=== PATIENT | female | born 1955 | race Caucasian/White ===

== ENCOUNTER 2019-02-22 22:03 | Inpatient (IN) | payer OTHER ==
[~2019-02-22] VITALS: Ht 177.8 cm; Wt 106.3 kg
[2019-02-22 22:53] LABS: Source, Urine Clean Catch
[2019-02-22 22:55] LABS: Bilirubin, Urine Neg (Neg); Blood, Urine 1+ (Neg); Glucose Qualitative, Urine Neg (Neg); Ketones, Urine Neg (Neg); Leukocyte Esterase, Urine Neg (Neg); Nitrite, Urine Neg (Neg); Protein, Urine 2+ (Neg); Urobilinogen, Urine NORM (Normal); pH, Urine 6.5 (5.0-8.0)
[2019-02-22 23:00] LABS: Appearance, Urine Clear (Clear); Color, Urine Yellow (P-Yellow)
[2019-02-22 23:01] LABS: Bacteria Mod /hpf; Squamous Epithelial Cells Not Seen /hpf (Few)
[2019-02-22 23:17] LABS: BASOPHILS ABSOLUTE AUTO 0.05 K/mm3 (0.00-0.23); BASOPHILS PERCENT AUTO 0 % (0-2); EOSINOPHILS ABSOLUTE AUTO 0.01 K/mm3 (0.00-0.68); EOSINOPHILS PERCENT AUTO 0 % (0-6); Hematocrit 47.9 % (33.0-51.0); Hemoglobin 16.3 g/dL (11.5-16.0); IMMATURE GRAN ABSOLUTE AUTO 0.05 K/mm3 (0.00-0.10); IMMATURE GRAN PERCENT AUTO 0 % (0-1); LYMPHOCYTES ABSOLUTE AUTO 1.82 K/mm3 (0.84-5.20); LYMPHOCYTES PERCENT AUTO 13 % (21-46); MONOCYTES ABSOLUTE AUTO 1.43 K/mm3 (0.16-1.47); MONOCYTES PERCENT AUTO 10 % (4-13); Mean Corpuscular HGB 30.2 pg (26.0-34.0); Mean Corpuscular Volume 89 fL (80-100); NEUTROPHILS ABSOLUTE AUTO 10.99 K/mm3 (1.96-9.15); NEUTROPHILS PERCENT AUTO 77 % (41-73); Platelet Count 244 K/mm3 (150-400); RDW Coefficient Variation 12.6 % (11.7-14.2); RDW Standard Deviation 41.1 fL (35.1-46.3); White Blood Cell Count 14.35 K/mm3 (4.00-11.30)
[2019-02-22] MEDS ORDERED: CARV25 PO (23:32)
[2019-02-22] MEDS ORDERED: HYDCHL25 PO (23:34)
[2019-02-22] MEDS ORDERED: ACET500 PO (23:34)
[2019-02-22] MEDS ORDERED: IBUP400 PO (23:35)
[2019-02-22] MEDS ORDERED: LISINOPRIL (23:36)
[2019-02-22] MEDS ORDERED: MELO7.5 PO (23:36)
[2019-02-22 23:38] LABS: Alanine Aminotransfer (ALT/SGP 21 U/L (12-78); Albumin/Globulin Ratio 0.7 (0.8-1.8); Alk Phos 103 U/L (50-136); Anion Gap 8 mmol/L (6-16); Aspartate Aminotrans (AST/SGOT 19 U/L (12-37); Bilirubin, Total 1.2 mg/dL (0.1-1.0); Blood Urea Nitrogen 9 mg/dL (8-24); Bun/Creatinine Ratio 16.5 (12.0-20.0); CO2, Blood 26 mmol/L (21-32); Calcium, Blood 9.2 mg/dL (8.5-10.1); Chloride, Blood 101 mmol/L (98-108); Creatinine, Blood 0.55 mg/dL (0.40-1.00); Globulin, Blood 4.6 g/dL (2.2-4.0); Glomerular Filtration Rate >60 (60-); Glucose, Blood 119 mg/dL (70-99); Potassium, Blood 3.1 mmol/L (3.5-5.5); Sodium, Blood 135 mmol/L (136-145); Total Protein, Blood 7.6 g/dL (6.4-8.2); Troponin I 0.062 ng/mL (0.000-0.040)
[2019-02-22] MEDS ORDERED: OMEPRAZOLE20 MG PO (23:58)
[2019-02-23] MEDS ORDERED: METO25 (00:02)
[2019-02-23] MEDS ORDERED: METO50ER PO (00:03)
--- NOTE | 2019-02-23 00:30 | NUR ---
PCU ADMIT PT BROUGHT TO PCU RM 03 BY MARIE FROM ER @ 2350. PT ABLE TO STAND AND INDEPENDENTLY AMBULATE TO PCU BED. PT A&O X4. VSS. MONITOR SHOWS ST, HR 100-110. SPO2 > 92% ON RA. PT DENIES PAIN/DISCOMFORT OF ANY KIND, REPORTING, "NO, NO PAIN. THEY GAVE ME MORPHINE." PT REPORTS NOT HAVING EATIN ANYTHING IN 8 DAYS, JUST DRINKING FLUIDS D/T "FEELING LIKE GARBAGE." PT REPORTS HAVING GONE TO [facility] BUT BEING TRANSPORTED HERE D/T NO BED AVAILABILITY IN [facility] OR SURROUNDING AREA. PT REPORTS ABD PAIN FOR PAST WK W/ POOR ORAL INTAKE AND NOT HAVING TAKEN HOME MEDS SINCE POSSIBLY FRIDAY. PT NPO PER ORDERS AT THIS TIME. WILL CONTINUE TO MONITOR AND PROVIDE CARE.
[2019-02-23 04:05] LABS: BASOPHILS ABSOLUTE AUTO 0.09 K/mm3 (0.00-0.23); BASOPHILS PERCENT AUTO 1 % (0-2); EOSINOPHILS ABSOLUTE AUTO 0.01 K/mm3 (0.00-0.68); EOSINOPHILS PERCENT AUTO 0 % (0-6); Hematocrit 49.2 % (33.0-51.0); Hemoglobin 16.1 g/dL (11.5-16.0); IMMATURE GRAN ABSOLUTE AUTO 0.05 K/mm3 (0.00-0.10); IMMATURE GRAN PERCENT AUTO 0 % (0-1); LYMPHOCYTES ABSOLUTE AUTO 1.98 K/mm3 (0.84-5.20); LYMPHOCYTES PERCENT AUTO 15 % (21-46); MONOCYTES PERCENT AUTO 11 % (4-13); Mean Corpuscular HGB 29.9 pg (26.0-34.0); Mean Corpuscular HGB Conc 32.7 g/dL (31.5-36.5); Mean Corpuscular Volume 91 fL (80-100); Mean Platelet Volume 9.5 fL (9.1-12.4); NEUTROPHILS ABSOLUTE AUTO 9.86 K/mm3 (1.96-9.15); NEUTROPHILS PERCENT AUTO 73 % (41-73); Platelet Count 227 K/mm3 (150-400); RDW Coefficient Variation 12.7 % (11.7-14.2); RDW Standard Deviation 42.8 fL (35.1-46.3); Red Blood Cell Count 5.38 M/mm3 (3.80-5.20); White Blood Cell Count 13.49 K/mm3 (4.00-11.30)
--- NOTE | 2019-02-23 04:22 | NUR ---
SHIFT SUMMARY PT A&O X4. VSS. MONITOR SHOWS ST, HR 100-110. SPO2 > 92% ON RA. PT SLEEPING REPORTS SLEEPING WELL. PT DENIES PAIN/DISCOMFORT. PT NPO PER ORDERS. IV FLUIDS/MEDICATIONS INFUSING PER ORDERS. PT UNABLE TO RECALL ACCURATE LIST OF CURRENT MEDICATIONS & DOSING, PT'S PHARMACY TO BE CALLED DURING BUSINESS HOURS FOR ACCURATE MEDICATION LISTING. WILL CONTINUE TO MONITOR AND PROVIDE CARE UNTIL REPORT OFF TO DAY SHIFT RN.
[2019-02-23 04:29] LABS: Alanine Aminotransfer (ALT/SGP 20 U/L (12-78); Albumin, Blood 2.7 g/dL (3.4-5.0); Albumin/Globulin Ratio 0.6 (0.8-1.8); Alk Phos 95 U/L (50-136); Anion Gap 10 mmol/L (6-16); Aspartate Aminotrans (AST/SGOT 20 U/L (12-37); Bilirubin, Total 1.2 mg/dL (0.1-1.0); Blood Urea Nitrogen 8 mg/dL (8-24); Bun/Creatinine Ratio 15.1 (12.0-20.0); CO2, Blood 22 mmol/L (21-32); Calcium, Blood 8.9 mg/dL (8.5-10.1); Chloride, Blood 105 mmol/L (98-108); Creatinine, Blood 0.53 mg/dL (0.40-1.00); Globulin, Blood 4.4 g/dL (2.2-4.0); Glomerular Filtration Rate >60 (60-); Glucose, Blood 97 mg/dL (70-99); Potassium, Blood 3.2 mmol/L (3.5-5.5); Sodium, Blood 137 mmol/L (136-145); Total Protein, Blood 7.1 g/dL (6.4-8.2)
--- NOTE | 2019-02-23 08:20 | NUR ---
PT PLEASANT COOP A/O. STATES FROM [facility]. DENIES PAIN. SOME OCC HEADACHE. TURN LIGHT OFF TO MAKE MORE COMFORTABLE. DENIES CHEST OR ABD PAIN. H/R REG, NO MURMER NOTED. PER TELE S TACH AT 100 OCC PVC'S / LUNGS CLEAR, RESP EASY, UNLABORED. PT STATES WAS SLEEPING UPON MY WALKING INTO ROOM. ON R/A. BT HYPOACTIVE. STATES NOT EATEN IN LAST FEW DAYS. LAST BM 2 DAYS. VOIDS PER BATHROOM. INDEPENDANT IN ROOM. BED IN LOW POSITION, CALL LITE IN REACH, CALLS APPROP
[2019-02-23] MEDS ORDERED: OXYB5 PO (11:06)
[2019-02-23] MEDS ORDERED: LOSARTAN POTAS100 MG PO (11:06)
--- NOTE | 2019-02-23 17:15 | NUR ---
CALLED DR MORALES. LOW VS. PT HAVING MUCH PAIN IN LOW BACK DOWN LEGS. SCIATICA PER PT. HAS HAD BEFORE. HOLD COREG. INCREASING L/R TO 100/ HR. TO REVIEW AND POSS ORDER TORADOL. FOR PAIN. PENDING ORDERS
--- NOTE | 2019-02-23 17:25 | NUR ---
LAB CALLED. GRAM + COCCI BLOOD BOTH SETS. CALLED DR MORALES. ORDERS PENDING
[2019-02-23 17:47] LABS: Triglycerides 79 mg/dL (30-160); Troponin I 0.047 ng/mL (0.000-0.040)
--- NOTE | 2019-02-23 18:30 | NUR ---
CALLED DR NDIAYE PT STATUS. OKAYED PCU STATUS WITH TELE.
--- NOTE | 2019-02-23 19:42 | NUR ---
PT HAS BEEN QUITE PLEASANT TODAY. PAIN SHOT UP THIS AFT. GAVE 2ND DOSE FENTANYL. ONLY HELPED FOR 1/2 - [address] NDIAYE BP AND PAIN. ORDERS FOR TORADOL. ALSO NOTIFIED OF GRAM + COCCI IN BOTH LAB DRAWS. NEW ORDERS MADE. MOVED BACK TO PCU STATUS WITH TELE. PT RESTING AGAIN. PAIN AT 5-6, IS IN HER LOW BACK TO DOWN LEGS, BUT BETTER, NEW IV PLACED TO ALLOW FOR NEW MEDS AND ORDERED BOLUS. BED IN LOW POSITION, CALL LITE IN REACH, CALLS APPROP
[2019-02-24 01:12] LABS: BASOPHILS PERCENT AUTO 1 % (0-2); EOSINOPHILS PERCENT AUTO 1 % (0-6); Hematocrit 39.1 % (33.0-51.0); Hemoglobin 13.1 g/dL (11.5-16.0); IMMATURE GRAN ABSOLUTE AUTO 0.06 K/mm3 (0.00-0.10); IMMATURE GRAN PERCENT AUTO 1 % (0-1); LYMPHOCYTES ABSOLUTE AUTO 1.96 K/mm3 (0.84-5.20); LYMPHOCYTES PERCENT AUTO 18 % (21-46); MONOCYTES ABSOLUTE AUTO 1.11 K/mm3 (0.16-1.47); MONOCYTES PERCENT AUTO 10 % (4-13); Mean Corpuscular HGB 29.8 pg (26.0-34.0); Mean Corpuscular HGB Conc 33.5 g/dL (31.5-36.5); Mean Corpuscular Volume 89 fL (80-100); Mean Platelet Volume 9.4 fL (9.1-12.4); NEUTROPHILS ABSOLUTE AUTO 7.73 K/mm3 (1.96-9.15); NEUTROPHILS PERCENT AUTO 70 % (41-73); Platelet Count 201 K/mm3 (150-400); RDW Coefficient Variation 12.7 % (11.7-14.2); RDW Standard Deviation 41.9 fL (35.1-46.3); Red Blood Cell Count 4.39 M/mm3 (3.80-5.20); White Blood Cell Count 11.06 K/mm3 (4.00-11.30)
[2019-02-24 01:33] LABS: Anion Gap 7 mmol/L (6-16); Blood Urea Nitrogen 15 mg/dL (8-24); Bun/Creatinine Ratio 22.8 (12.0-20.0); CO2, Blood 26 mmol/L (21-32); Calcium, Blood 8.9 mg/dL (8.5-10.1); Chloride, Blood 105 mmol/L (98-108); Creatinine, Blood 0.66 mg/dL (0.40-1.00); Glomerular Filtration Rate >60 (60-); Glucose, Blood 89 mg/dL (70-99); Potassium, Blood 3.1 mmol/L (3.5-5.5); Sodium, Blood 138 mmol/L (136-145); Troponin I <0.015 ng/mL (0.000-0.040)
--- NOTE | 2019-02-24 06:41 | NUR ---
SHIFT SUMMARY PT SLEEPING COMFORTABLY IN ROOM. NO ACUTE CHANGES IN STATUS T/O NIGHT. TP SLEPT WELL, WAKING ONLY TO ASK FOR PAIN MEDS OCCASIONALLY. RESP EVEN UNLABORED ON RA W/ SATS >92%. PT DENIED CP OR SOB T/O NIGHT, REPORTED PAIN TO BACK AND HIPS THAT IS CHRONIC AND PT WAS MEDICATED PER EMAR. PT ABLE TO AMBULATE TO RR W/ 1 PERS ASSIST. LR INFUSING AT 100ML/HR IN PIV. DENIES OTHER NEEDS AT THIS TIME. CALL LIGHT IN REACH.
[2019-02-24 09:53] LABS: Vancomycin, Trough 17.1 ug/mL (5.0-10.0)
--- NOTE | 2019-02-24 09:59 | NUR ---
AM NOTE. ASSUMED CARE OF PT APROX 0700. PT IS A&Ox4 AND SBA IN THE ROOM. PT WAS ADMITTED FOR ABD PAIN. PT CURRENTLY DENIES ABD PAIN BUT IS C/O OF CHRONIC R HIP AND BACK PAIN. PT'S VS STABLE. PT IS NSR IN THE 80'S WITH NO EVENTS PER UNIT CONTROL CLERK. L/S CLEAR, NO EDEMA NOTED ON ASSESSMET. BT PRESENT AND HYPOACTIVE ABD IS SOFT AND NONTENDER TO PALP. PT IS ON CLEAR LIQUID DIET. PT MEDICATED FOR PAIN PER EMAR. WILL CONTINUE TO MONITOR.
--- NOTE | 2019-02-24 10:30 | NUR ---
Echocardiogram completed.
[2019-02-24 10:50] LABS: U Amphetamine Screen Not Detected; U Barbituate Screen Not Detected; U Benzodiazapine Screen Not Detected; U Buprenorphine Screen Not Detected; U Cannabinoids Screen DETECTED; U Cocaine Screen Not Detected; U Methadone Screen Not Detected; U Methamphetamine Screen Not Detected; U Opiates Screen Not Detected; U Oxycodone Screen Not Detected; U Phencyclidine Screen Not Detected; U Propoxyphene Screen Not Detected
--- NOTE | 2019-02-24 11:45 | NUR ---
TRANSFER FROM [facility] PT TRANSFERED [facility], REPORT TAKEN FROM BARBARA VELARDE. PT A&O X4
--- NOTE | 2019-02-24 17:51 | NUR ---
SHIFT SUMMARY PT TRANSFERRED FROM PCU THIS SHIFT. PT A&O X4, PT MEDICATED X1 FOR PAIN. IV STARTED X2. PT ADVANCED DIET TO FULL LIQUID. AMBULATES INDEPENDENTLY TO RESTROOM. CALL LIGHT WITH IN REACH. WILL COUNTINUE TO MONITOR AND REPORT TO LINDSAY VELARDE.
--- NOTE | 2019-02-24 19:15 | NUR ---
PATIENT JUST GOT BACK FROM THE BATHROOM. IV LINE BEEPING. THIS WAS COMPLETED. SL HER LEFT HAND IV. IV FLUIDS INFUSING INTO THE OTHER SITE WITH SOME DIFFICULTY. REPOSITIONED AND PLACED WASHRAG WRAP ON IT. STATES PAIN IN HIP, ASKING TO HAVE TORDOL. WILL MEDICATE WHEN IT IS TIME. STATES PAIN IN HIP DID NOT START TILL THIS HOSPITALIZATION. DENIES ANY ABDOMINAL PAIN BUT SHE IS VERY GUARDED IT WAS HURTING EARLIER. DENIES ANY NAUSEA OR VOMITING. CALL LIGHT STILL IN REACH. WILL CONTINUE TO MONITOR.
[2019-02-25 05:31] LABS: BASOPHILS ABSOLUTE AUTO 0.09 K/mm3 (0.00-0.23); BASOPHILS PERCENT AUTO 1 % (0-2); EOSINOPHILS PERCENT AUTO 3 % (0-6); Hematocrit 37.3 % (33.0-51.0); Hemoglobin 12.1 g/dL (11.5-16.0); IMMATURE GRAN ABSOLUTE AUTO 0.06 K/mm3 (0.00-0.10); IMMATURE GRAN PERCENT AUTO 1 % (0-1); LYMPHOCYTES ABSOLUTE AUTO 2.05 K/mm3 (0.84-5.20); LYMPHOCYTES PERCENT AUTO 20 % (21-46); MONOCYTES ABSOLUTE AUTO 0.94 K/mm3 (0.16-1.47); MONOCYTES PERCENT AUTO 9 % (4-13); Mean Corpuscular HGB 29.5 pg (26.0-34.0); Mean Corpuscular HGB Conc 32.4 g/dL (31.5-36.5); Mean Corpuscular Volume 91 fL (80-100); Mean Platelet Volume 9.6 fL (9.1-12.4); NEUTROPHILS ABSOLUTE AUTO 6.84 K/mm3 (1.96-9.15); NEUTROPHILS PERCENT AUTO 67 % (41-73); Platelet Count 197 K/mm3 (150-400); RDW Coefficient Variation 13.1 % (11.7-14.2); RDW Standard Deviation 43.9 fL (35.1-46.3); White Blood Cell Count 10.28 K/mm3 (4.00-11.30)
[2019-02-25 05:46] LABS: Bun/Creatinine Ratio 15.2 (12.0-20.0); Calcium, Blood 8.8 mg/dL (8.5-10.1); Creatinine, Blood 1.91 mg/dL (0.40-1.00); Magnesium, Blood 2.1 mg/dL (1.6-2.4); Potassium, Blood 3.9 mmol/L (3.5-5.5)
--- NOTE | 2019-02-25 05:46 | NUR ---
SHIFT SUMMARY: 63 YEAR OLD FEMALE ADMITTED FOR INTRACTABLE ABDOMINAL PAIN. KEMI HAS NOT COMPLAINED OF ANY ABDOMINAL PAIN THIS NIGHT, SHE IN FACT REPORTED PAIN IN THE HIP AND LEG. STATEING IT HURTS TO MOVE. SHE HAS BEEN GIVEN TORDOL X2 THIS SHIFT WHICH HAS RELEIVED HER PAIN. SHE WAS ABLE TO SLEEP WITH NO PROBLEMS. IV ANTIBOTICS WERE ADMINISTERED ALONG WITH IV FLUIDS. SHE HAD NO OTHER COMPLAINTS THIS SHIFT. CALL LIGHT REMAINED IN REACH AND USED APPROPRIATLY. WILL REPORT TO DAY SHIFT.
--- NOTE | 2019-02-25 17:16 | NUR ---
SHIFT SUMMARY: NO ACUTE CHANGES TO REPORT THIS SHIFT. PT A&O; CALM AND COOPERATIVE WITH CARE. TORADOL D/C'd THIS SHIFT--PT STATES SHE WOULD PREFER NOT TO TAKE FENTANYL. PATIENT UP c SBA. INFECTIOUS-DISEASE (DR. MUÑOZ) CONSULTED THIS SHIFT. IV ABX & REHYDRATION CONTINUING. WCTM.
--- NOTE | 2019-02-25 22:31 | NUR ---
02/25/19 5488 HEATING PAD APPLIED TO RT HIP/LEG FOR COMFORT.
[2019-02-26 05:37] LABS: BASOPHILS ABSOLUTE AUTO 0.12 K/mm3 (0.00-0.23); BASOPHILS PERCENT AUTO 1 % (0-2); EOSINOPHILS ABSOLUTE AUTO 0.57 K/mm3 (0.00-0.68); EOSINOPHILS PERCENT AUTO 5 % (0-6); Hematocrit 36.9 % (33.0-51.0); Hemoglobin 11.8 g/dL (11.5-16.0); IMMATURE GRAN ABSOLUTE AUTO 0.14 K/mm3 (0.00-0.10); IMMATURE GRAN PERCENT AUTO 1 % (0-1); LYMPHOCYTES ABSOLUTE AUTO 2.25 K/mm3 (0.84-5.20); LYMPHOCYTES PERCENT AUTO 20 % (21-46); MONOCYTES PERCENT AUTO 8 % (4-13); Mean Corpuscular HGB 30.2 pg (26.0-34.0); Mean Platelet Volume 9.8 fL (9.1-12.4); NEUTROPHILS ABSOLUTE AUTO 7.25 K/mm3 (1.96-9.15); NEUTROPHILS PERCENT AUTO 65 % (41-73); Platelet Count 245 K/mm3 (150-400); RDW Coefficient Variation 13.4 % (11.7-14.2); RDW Standard Deviation 46.9 fL (35.1-46.3); Red Blood Cell Count 3.91 M/mm3 (3.80-5.20); White Blood Cell Count 11.23 K/mm3 (4.00-11.30)
[2019-02-26 05:42] LABS: Mean Corpuscular Volume 94 fL (80-100)
[2019-02-26 05:51] LABS: Bun/Creatinine Ratio 13.3 (12.0-20.0); Calcium, Blood 8.4 mg/dL (8.5-10.1); Creatinine, Blood 2.64 mg/dL (0.40-1.00); Magnesium, Blood 2.1 mg/dL (1.6-2.4); Potassium, Blood 3.3 mmol/L (3.5-5.5)
--- NOTE | 2019-02-26 07:28 | NUR ---
02/26/19 0615 Sleeping well after given new pain med. Pt had stated earlier that it worked much better to control pain. Vitals stable. See previous notes.
--- NOTE | 2019-02-26 19:25 | NUR ---
SHIFT SUMMARY: NO ACUTE CHANGES TO REPORT THIS SHIFT. PT A&O; CALM AND COOPERATIVE WITH CARE. MEDICATED FOR R HIP/LEG PAIN PER EMAR; MEDICATIONS CHANGING R/T DECREASING KIDNEY FUNCTION. INFECTIOUS DISEASE FOLLOWING. PT UP WITH SBA TO BSC. REPORT GIVEN TO ONCOMING RN.
--- NOTE | 2019-02-27 03:09 | NUR ---
FALL: PT FELL WHILE INDEPENDENTLY T/F FROM BED TO [facility] AT 0140. PT STATES SHE WOKE UP AND WANTED TO VOID BEFORE REQUESTING PAIN MED. "BECAME WOBBLY" DURING T/F AND LOST HER BALANCE FALLING ONTO HER L HIP. DENIED HITTING HEAD. NO DIZZINESS. STATES SHE WAS STILL SLEEPY AND NOT MAKING GOOD JUDGEMENT CALLS LIKE SHE WOULD NORMALLY. PT WAS FOUND SHUFFLING ON HER KNEES BACK TOWARDS THE BED. ASSESSED FOR ANY ACUTE INJURY THEN ASSISTED TO A STANDING POSITION WITH 2 ASSIST AND A GAIT BELT. PT THEN CRAWLED INTO BED ONCE STANDING AND POSITIONED SELF INDEPENDENTLY. ROM WNL. BASELINE PAIN IN THE RIGHT BACK/HIP/LEG. NO SWELLING, BRUISING, OR DEFORMITY OBSERVED. BED ALARM TURNED ON AND INFORMED PT SHE NEEDS TO CALL FOR ASSISTANCE WITH ALL T/F'S.
[2019-02-27 04:40] LABS: BASOPHILS ABSOLUTE AUTO 0.11 K/mm3 (0.00-0.23); BASOPHILS PERCENT AUTO 1 % (0-2); EOSINOPHILS ABSOLUTE AUTO 0.52 K/mm3 (0.00-0.68); EOSINOPHILS PERCENT AUTO 5 % (0-6); Hematocrit 35.1 % (33.0-51.0); Hemoglobin 11.4 g/dL (11.5-16.0); IMMATURE GRAN ABSOLUTE AUTO 0.12 K/mm3 (0.00-0.10); IMMATURE GRAN PERCENT AUTO 1 % (0-1); LYMPHOCYTES ABSOLUTE AUTO 1.89 K/mm3 (0.84-5.20); LYMPHOCYTES PERCENT AUTO 16 % (21-46); MONOCYTES ABSOLUTE AUTO 1.03 K/mm3 (0.16-1.47); MONOCYTES PERCENT AUTO 9 % (4-13); Mean Corpuscular HGB 30.3 pg (26.0-34.0); Mean Corpuscular HGB Conc 32.5 g/dL (31.5-36.5); Mean Corpuscular Volume 93 fL (80-100); Mean Platelet Volume 9.3 fL (9.1-12.4); NEUTROPHILS ABSOLUTE AUTO 7.92 K/mm3 (1.96-9.15); NEUTROPHILS PERCENT AUTO 68 % (41-73); Platelet Count 270 K/mm3 (150-400); RDW Coefficient Variation 13.2 % (11.7-14.2); RDW Standard Deviation 45.8 fL (35.1-46.3); Red Blood Cell Count 3.76 M/mm3 (3.80-5.20); White Blood Cell Count 11.59 K/mm3 (4.00-11.30)
[2019-02-27 04:56] LABS: Bun/Creatinine Ratio 14.3 (12.0-20.0); Calcium, Blood 8.7 mg/dL (8.5-10.1); Creatinine, Blood 2.44 mg/dL (0.40-1.00); Potassium, Blood 3.9 mmol/L (3.5-5.5)
--- NOTE | 2019-02-27 06:45 | NUR ---
SHIFT SUMMARY: VSS. TEMP 99.0. A/OX4. RECIEVED 1MG DILAUDID 1X DOSE EARLY IN THE NIGHT WITH GOOD EFFECT. PT SLEPT COMFORTABLY, TELLING STORIES, AND LAUGHING WHEN AWAKE. STATES SHE CAN FEEL PAIN "BEGINNING TO RAMP UP AGAIN" AND REQUESTED ULTRAM. DESCRIBES PAIN SHOOTING DOWN HER RIGHT LEG FROM RIGHT BACK AND BUTTOCKS. NO RESIDUAL NOTED FROM TONIGHT[place] FALL. BED ALARM IS ON AND PT HAS NOT ATTEMPTED ANY SELF TRANSFERS.
--- NOTE | 2019-02-27 16:36 | NUR ---
SHIFT SUMMARY NO ACUTE CHANGES THIS SHIFT, NO C/O ANY KIND, BEDRESTING, A&O, VSS, WILL CONT TO MONITOR UNTIL REPORT GIVEN TO NOC RN.
[2019-02-28 05:12] LABS: BASOPHILS PERCENT AUTO 1 % (0-2); EOSINOPHILS ABSOLUTE AUTO 0.49 K/mm3 (0.00-0.68); EOSINOPHILS PERCENT AUTO 5 % (0-6); Hematocrit 34.7 % (33.0-51.0); Hemoglobin 11.2 g/dL (11.5-16.0); IMMATURE GRAN ABSOLUTE AUTO 0.12 K/mm3 (0.00-0.10); IMMATURE GRAN PERCENT AUTO 1 % (0-1); LYMPHOCYTES ABSOLUTE AUTO 2.13 K/mm3 (0.84-5.20); LYMPHOCYTES PERCENT AUTO 23 % (21-46); MONOCYTES ABSOLUTE AUTO 0.89 K/mm3 (0.16-1.47); MONOCYTES PERCENT AUTO 10 % (4-13); Mean Corpuscular HGB 30.4 pg (26.0-34.0); Mean Corpuscular HGB Conc 32.3 g/dL (31.5-36.5); Mean Corpuscular Volume 94 fL (80-100); Mean Platelet Volume 9.6 fL (9.1-12.4); NEUTROPHILS ABSOLUTE AUTO 5.55 K/mm3 (1.96-9.15); NEUTROPHILS PERCENT AUTO 60 % (41-73); Platelet Count 290 K/mm3 (150-400); RDW Coefficient Variation 13.3 % (11.7-14.2); RDW Standard Deviation 46.6 fL (35.1-46.3); Red Blood Cell Count 3.68 M/mm3 (3.80-5.20); White Blood Cell Count 9.28 K/mm3 (4.00-11.30)
[2019-02-28 05:38] LABS: Bun/Creatinine Ratio 14.9 (12.0-20.0); Calcium, Blood 8.7 mg/dL (8.5-10.1); Creatinine, Blood 2.15 mg/dL (0.40-1.00); Potassium, Blood 4.2 mmol/L (3.5-5.5)
--- NOTE | 2019-02-28 06:27 | NUR ---
SHIFT SUMMARY: NO ACUTE CHANGES. VSS. AFEB. A/0X4. MAKING NEEDS KNOWN. SLEPT WELL. STATES ULTRAM HAS BEEN VERY EFFECTIVE FOR RIGHT BACK/HIP/LEG PAIN. NO ABDOMINAL PAIN. TOLERATING ALL PO INTAKE. BED LOW,BED ALARM ON, CALL BUTTON IN REACH.
--- NOTE | 2019-02-28 16:09 | NUR ---
PT IS A/OX3, PLEASANT AND COOPERATIVE, THE PT IS UP WITH MINIMAL ASSIST TO THE BATHROOM, THE PT APPEARS TO BE BREATHING EASILY ON RA AT THIS TIME, THE PT REPORTS MILD PAIN IN HER RIGHT BUTTOCK/HIP AREA, SO FAR THIS SHIFT HAS DECLINED PAIN MEDICATION, A LIDOCAINE PATCH WAS APPLIED TO THE AREA, PT HAS SLEPT FOR MOST OF THE DAY, CALL LIGHT IN REACH, WILL CONTINUE TO MONITOR AND ASSESS FOR CHANGES
--- NOTE | 2019-03-01 05:46 | NUR ---
SHIFT SUMMARY: BP HIGHER TONIGHT THAN PREVIOUS SHIFTS. PT AWAKE MOST OF NIGHT, MOOD GOOD, BUT REPORTING PAIN RETURNING SOONER. MEDICATED WITH ULTRAM PER EMAR. REPORTS THAT ULTRAM BRINGS PAIN FROM A 5 OR 6/10 TO A 1 OR 2/10. PAIN CONTINUES TO BE IN R BACK/BUTTOCK/AND LEG. DENIES ABD TENDERNESS. A/OX4 COMMUNICATING NEEDS.
[2019-03-01 05:47] LABS: BASOPHILS PERCENT AUTO 1 % (0-2); EOSINOPHILS ABSOLUTE AUTO 0.48 K/mm3 (0.00-0.68); EOSINOPHILS PERCENT AUTO 5 % (0-6); IMMATURE GRAN ABSOLUTE AUTO 0.11 K/mm3 (0.00-0.10); IMMATURE GRAN PERCENT AUTO 1 % (0-1); LYMPHOCYTES ABSOLUTE AUTO 1.92 K/mm3 (0.84-5.20); LYMPHOCYTES PERCENT AUTO 22 % (21-46); MONOCYTES ABSOLUTE AUTO 1.03 K/mm3 (0.16-1.47); MONOCYTES PERCENT AUTO 12 % (4-13); Mean Corpuscular HGB 30.1 pg (26.0-34.0); Mean Corpuscular HGB Conc 32.4 g/dL (31.5-36.5); Mean Corpuscular Volume 93 fL (80-100); Mean Platelet Volume 9.5 fL (9.1-12.4); NEUTROPHILS ABSOLUTE AUTO 5.28 K/mm3 (1.96-9.15); NEUTROPHILS PERCENT AUTO 59 % (41-73); Platelet Count 330 K/mm3 (150-400); RDW Coefficient Variation 13.2 % (11.7-14.2); RDW Standard Deviation 45.2 fL (35.1-46.3); Red Blood Cell Count 3.65 M/mm3 (3.80-5.20); White Blood Cell Count 8.92 K/mm3 (4.00-11.30)
[2019-03-01 06:00] LABS: Bun/Creatinine Ratio 16.1 (12.0-20.0); Calcium, Blood 8.9 mg/dL (8.5-10.1); Creatinine, Blood 1.93 mg/dL (0.40-1.00); Magnesium, Blood 1.9 mg/dL (1.6-2.4); Potassium, Blood 4.1 mmol/L (3.5-5.5)
--- NOTE | 2019-03-01 19:30 | NUR ---
SUMMARY- PT A/O X3, INDEPENDANT TO BSC VOIDING. TOLERATING FOOD AND FLUIDS. IVF RUNNING. HAVING R HIP PAIN, APPLIED LIDOCAIN PATCH OVER AREA, MEDICATED WITH ULTRAM Q8 WHICH PT STATES HELPFUL. BP WAS ELEVATED THIS AM, NEW BP MED STARTED. RECHECKED AT 1100 AND BP DOWN TO ACCPETABLE LEVEL. PT STARTED TO HAVE A HEADACHE AND WAS DEALING WITH NASAL CONGESTION, CALLED FOR TYLENOL ORDER AND FLONASE ORDERED AND STARTED. HELPET VALENTINO AND NASAL CONGESTION, PT STATES SHE WAS EVEN ABLE TO GET A NAP AND FELT MUCH BETTER THIS PM.
--- NOTE | 2019-03-02 06:26 | NUR ---
HAS BEEN RESTING WITH FEW INTERRUPTIONS AT WHICH TIMES SHE VOICED [facility]. SEE MAR FOR DETAILS FOR ANALGESICS. ALERT AND ORIENTED. IVF AND ABX INFUSED PER MD ORDERS. CALL LIGHT IN REACH.
[2019-03-02 13:27] LABS: Bun/Creatinine Ratio 16.5 (12.0-20.0); Calcium, Blood 9.2 mg/dL (8.5-10.1); Creatinine, Blood 1.64 mg/dL (0.40-1.00); Potassium, Blood 3.9 mmol/L (3.5-5.5)
--- NOTE | 2019-03-02 19:29 | NUR ---
SHIFT SUMMARY: NO ACUTE CHANGES TO REPORT THIS SHIFT. PT A&O; CALM AND COOEPRATIVE WITH CARE. MEDICATED FOR HIP PAIN PER EMAR. ORTHO CONSULT (DR TIDWELL) THIS SHIFT. IV ABX & REHYDRATION CONTINUING. REPORT GIVEN TO ONCOMING RN.
--- NOTE | 2019-03-03 05:00 | NUR ---
Has been resting quietly with few interruptions this shift. IVF and antibiotics infusing as per MAR. Bed alarm on for safety. Call light in reach. Analgesics administered for pain - see MAR for details.
[2019-03-03 05:58] LABS: Bun/Creatinine Ratio 15.3 (12.0-20.0); Calcium, Blood 9.1 mg/dL (8.5-10.1); Creatinine, Blood 1.57 mg/dL (0.40-1.00); Potassium, Blood 3.9 mmol/L (3.5-5.5)
--- NOTE | 2019-03-03 17:41 | NUR ---
PATIENT HAS SLEPT MOST OF THE SHIFT. SHE CONTINUES TO HAVE PAIN AND IS MEDICATED PER EMAR. SHE IS ALERT AND ORIENTED AND ABLE TO EXPRESS ANY NEEDS. SHE AMBULATES TO BSC WITH SBA. CALL LIGHT WITHIN REACH.
--- NOTE | 2019-03-04 08:45 | NUR ---
PT PLEASANT COOP A/O. STATES IMPROVING. STATES PAIN RT HIP, MED PER EMAR. H/R REG, NO MURMER NOTED. NO TELE. LUNGS CLEAR, RESP EASY, UNLABORED. ON R.A . BT X4 LAST BM 2 DAYS. ABD SOFT NONTENDER. VOIDS PER BATHROOM. OR BSC. PT HOPING FOR D.C. BED IN LOW POSITION, CALL LITE IN REACH. CALLS APPROP
[2019-03-04] MEDS ORDERED: NORVASC10 MG PO (14:55)
[2019-03-04] MEDS ORDERED: CARV25 PO (14:56)
[2019-03-04] MEDS ORDERED: Rocephin 1g1 G/50 ML IV (14:56)
[2019-03-04] MEDS ORDERED: TRAM50 PO (14:57)
[2019-03-04] MEDS ORDERED: LIDOCARE1 EACH TOP (14:57)
[2019-03-04] MEDS ORDERED: GABA100 PO (15:02)
--- NOTE | 2019-03-04 15:44 | NUR ---
DISCHARGE REVIEWED WITH PT . PT VERBALIZED UNDERSTANDING OF MEDS AND IV CARE. PLANNING FOR DAILY IV OUTPATIENT. HANDED PT RX FOR TRAMADOL. SIGNED ACCEPTANCE ON D/C SHEET. PERIPHERAL IV PULLED INTACT. POWERGLIDE LEFT INTACT. PT WHEELED TO DOOR TO MEET TRANSPORT AT 1545.
== END 2019-03-04 15:43 | disposition home health service (06) | DRG 871 ==
LOC: ER 22:03 → PCU 22:53 → MEDS 22:53 → PCU 23:55 → MEDS 02-24 10:32 → ICUE 02-24 14:00 → MEDS 02-24 15:02
PROVIDERS: Emergency Medicine; Internal Medicine; ADMIT Family Medicine
DX: A41.01 Sepsis due to Methicillin susceptible Staphylococcus aureus (principal); K85.90 Acute pancreatitis without necrosis or infection, unspecified; N17.0 Acute kidney failure with tubular necrosis; N39.0 Urinary tract infection, site not specified; A41.51 Sepsis due to Escherichia coli [E. coli]; R65.20 Severe sepsis without septic shock; I10 Essential (primary) hypertension; E87.6 Hypokalemia; Z86.14 Personal history of Methicillin resistant Staphylococcus aureus infection; Z79.1 Long term (current) use of non-steroidal anti-inflammatories (NSAID); Z79.899 Other long term (current) drug therapy; Z87.891 Personal history of nicotine dependence
CPT/HCPCS: 36415; 72148; 73700; 76705; 76770; 76830; 76856; 80048; 80053; 80202; 81001; 83605; 83735; 84478; 84484; 85025; 85651; 86140; 87040; 87077; 87086; 87147; 87186; 90686; 93306; 96361; 96374; 96375; 97116; 97162; 97530; 99285-25; A9270; C9113; J0360; J0690; J0696; J1170; J1885; J2185; J2405; J3010; J3370; J3480; J7030; J7050; J7120